=== PATIENT | female | born 1975 | race Caucasian/White ===

== ENCOUNTER 2020-07-26 07:15 | Day surgery (SDC) | payer OTHER, SELFPAY ==
[2020-05-20 10:11] VITALS: BMI 31.6
[2020-07-26 07:29] VITALS: BP 147/92; PULSE 79; RESP 18; TEMP 36.2; O2SAT 98
[2020-07-26 07:38] LABS: UPreg QC Valid YES; Urine Pregnancy NEGATIVE (NEGATIVE)
--- NOTE | 2020-07-26 08:30 | MHC.SHP ---
Pre-Procedural Eval Section B Chief Complaint: fx hx of colonic polyps,screening Details of Present Illness: see h&p no changes Relevant Family History (Specify if Yes): No Relevant Social History: None Present Medications: see Short Stay Collaborative assessment Medical History: No relevant PMH History of Previous Operations: No relevant previous surgery Allergies: Allergies Allergy/AdvReac Type Severity Reaction Status Date / Time No Known Allergies Allergy Verified 05/20/20 10:09 Review of Systems Sugical H&P ROS: Negative: Constitution, Cardiovascular, Respiratory, Neurological, Psychiatric, Hem-Onc, Allergic/Immunologic, Gastrointestinal, Genitourinary, Musculoskeletal, Integumentary, Endocrine and Eyes/Ears/Nose/Throat Exam Surgical H&P Exam: Normal: HEENT, Normal: Heart, Normal: Lungs, Normal: Extremities, Normal: Abdomen, Normal: Skin and Normal: Neurological Plan Diagnosis/Plan: Unchanged I have reviewed the history and physical and performed a pertinent physical examination on my patient. No changes have occurred unless specified.
[2020-07-26 08:52] VITALS: BP 91/50; PULSE 71; RESP 18; TEMP 36.6; O2SAT 97
--- NOTE | 2020-07-26 08:58 | PM.OP ---
Brief Operative Note Date of Service: 07/26/20 Pre-op diagnosis: fh polyps Post-op diagnosis: same Procedure: colonoscopy Surgeon: Jhony Shell Anesthesia: MAC Was an Bag Filler Machine Operator used for this Procedure?: No Estimated blood loss (mL): 2 Pathology: other (bxs ti and sigmoid) Condition: stable Disposition: PACU
[2020-07-26] MEDS: Lactated Ringers 1,000 ML 20 ML IVCONT (09:03)
[2020-07-26 09:07] VITALS: BP 123/79; PULSE 71; RESP 17; TEMP 36.6; O2SAT 99
--- NOTE | 2020-07-26 09:40 | OP_ITS ---
SURGEON: Jhony Shell MD INDICATIONS: Colon cancer screening and family history of colon polyps. PREOPERATIVE DIAGNOSIS: POSTOPERATIVE DIAGNOSIS: PROCEDURE PERFORMED: Colonoscopy to the terminal ileum with biopsy. ESTIMATED BLOOD LOSS: COMPLICATIONS: ANESTHESIA: ASSISTANTS: SPECIMENS: MEDICATIONS: Monitored anesthesia care. DESCRIPTION OF PROCEDURE: History and physical performed. The risks and benefits of the procedure were explained to the patient. Informed consent was obtained. The patient was placed in the left lateral decubitus position. A digital rectal exam was performed and was found to be normal. The Olympus pediatric video colonoscope was introduced into the rectum and advanced to the cecum without difficulty. The cecum was identified by transillumination, palpation, and identification of ileocecal valve. Examination was performed and the scope was removed. She tolerated the procedure well and was taken to recovery area in stable condition. FINDINGS: The terminal ileum was examined and appeared normal. The visualized colonic mucosa was normal. There was a small amount of liquid stool coating the mucosa limiting the sensitivity examination for detection of small polyps. No polyps were identified. Random biopsies were obtained from the terminal ileum and sigmoid. There was no evidence of colitis. Retroflexed examination showed some small internal hemorrhoids. IMPRESSION: Normal colonoscopy. RECOMMENDATIONS: 1. Follow up the biopsy results. 2. Repeat colonoscopy is recommended in 5 years because of family history of colon polyps. MD BALDO Rahman/SELENAL / [id number]
--- NOTE | 2020-07-26 11:39 | HO.POSTANES ---
Post Anesthesia Evaluation Post Anesthesia Evaluation Vital Signs: Vital Signs Temp Pulse Resp BP Pulse Ox 07/26/20 09:07 97.9 F 71 17 123/79 99 07/26/20 08:52 97.9 F 71 18 91/50 L 97 07/26/20 07:29 97.2 F 79 18 147/92 H 98 Anesthesia: Monitored Mental Status: Awake Pain Control: Satisfactory Nausea/Vomiting: None Hydration: Adequate Anesthesia-Related Issues: No Anes. Related Issues
== END 2020-07-26 09:40 | disposition home or self-care (01) ==
PROVIDERS: PCP Internal Medicine; Visit Provider Internal Medicine Gastroenterology
PROC: 0DJD8ZZ Inspection of Lower Intestinal Tract, Via Natural or Artificial Opening Endoscopic (ICD-10-PCS; CPT 45378; principal; 2020-07-26 08:10)
DX: Z12.11 Encounter for screening for malignant neoplasm of colon (principal); Z83.71 Family history of colonic polyps; K64.8 Other hemorrhoids; I10 Essential (primary) hypertension; Z79.899 Other long term (current) drug therapy; N28.82 Megaloureter; Z90.49 Acquired absence of other specified parts of digestive tract
CPT/HCPCS: 45380; 81025; 88305